=== PATIENT | male | born 1995 | race Two or more races ===

== ENCOUNTER 2018-06-22 23:03 | Emergency (ER) | payer SELFPAY ==
[~2018-06-22] VITALS: Ht 172.7 cm; Wt 59.0 kg
--- NOTE | 2018-06-22 23:38 | NUR ---
Dr. Gregory at bedside for MSE.
[2018-06-22] MEDS ORDERED: ONDANSETRON ODT 4 MG TAB.RAPDIS SL ONE (23:45)
[2018-06-22] MEDS ORDERED: HYDROCODONE/APAP 5-325MG TABLET PO ONE (23:45)
[2018-06-22] MEDS ORDERED: HYDROCODONE/APAP 5-325MG TABLET ONE (23:48)
[2018-06-22] MEDS ORDERED: ONDANSETRON ODT 4 MG TAB.RAPDIS ONE (23:49)
--- NOTE | 2018-06-22 23:50 | NUR ---
Xray at bedside.
--- NOTE | 2018-06-23 00:58 | NUR ---
Patient discharged to home in stable conditon. Written and verbal after care instructions given. Patient verbalizes understanding of instructions. Pt out of ER via wheelchair, accompanied pt to vehicle, no fall noted, VSS, no acute signs of distress, all belongings taken, to be driven via private vehicle by brother.
[2018-06-23 01:03] VITALS: BP 113/82
== END 2018-06-23 01:03 | disposition home or self-care (01) ==
LOC: ER 23:07
DX: M25.572 Pain in left ankle and joints of left foot (principal)
CPT/HCPCS: 73610; 73630; A4663; Q0162